=== PATIENT | male | born 1990 | race African-American/Black ===

== ENCOUNTER 2018-12-24 22:45 | Emergency (ER) | payer BC, OTHER ==
[~2018-12-24] VITALS: Ht 182.9 cm; Wt 99.8 kg
[2018-12-25 01:10] VITALS: BP 122/91
== END 2018-12-25 01:11 | disposition home or self-care (01) ==
LOC: ER 22:45
DX: R51 Headache (principal); R11.10 Vomiting, unspecified; Z88.0 Allergy status to penicillin